=== PATIENT | female | born 1965 | race Two or more races ===

== ENCOUNTER → 2024-05-02 | Outpatient (BNVA) | payer MEDICAID, SELFPAY | END | disposition home or self-care (01) | PROVIDERS: PCP Nurse Practitioner Family; Referring Provider Nurse Practitioner Family; Visit Provider Nurse Practitioner Primary Care | DX: H61.22 Impacted cerumen, left ear (principal); H60.391 Other infective otitis externa, right ear; Z01.812 Encounter for preprocedural laboratory examination | CPT/HCPCS: 69209; 99214 ==

== ENCOUNTER → 2024-05-09 | Outpatient (BNVA) | payer MEDICAID, SELFPAY | END | disposition home or self-care (01) | PROVIDERS: PCP Nurse Practitioner Family; Referring Provider Nurse Practitioner Family; Visit Provider Nurse Practitioner Family | DX: E78.5 Hyperlipidemia, unspecified (principal); I10 Essential (primary) hypertension; R73.03 Prediabetes; H92.01 Otalgia, right ear; M25.50 Pain in unspecified joint; M81.0 Age-related osteoporosis without current pathological fracture; M85.88 Other specified disorders of bone density and structure, other site; M06.9 Rheumatoid arthritis, unspecified; Z12.4 Encounter for screening for malignant neoplasm of cervix; H60.501 Unspecified acute noninfective otitis externa, right ear | CPT/HCPCS: 99214 ==

== ENCOUNTER → 2024-05-16 | Outpatient (BNVA) | payer MEDICAID, SELFPAY | END | disposition home or self-care (01) | PROVIDERS: PCP Nurse Practitioner Family; Referring Provider Nurse Practitioner Family; Visit Provider Nurse Practitioner Family | DX: H60.501 Unspecified acute noninfective otitis externa, right ear (principal); Z71.2 Person consulting for explanation of examination or test findings | CPT/HCPCS: 99214 ==

== ENCOUNTER → 2024-06-18 | Outpatient (CLI) | payer MEDICAID, SELFPAY ==
--- NOTE | 2024-06-18 08:45 | XR_ITS ---
Examination: MRI brain without intravenous contrast. Date and time of exam: June 18, 2024 10:30 AM Indications: Headaches beginning 6 months ago with increasing memory loss Technique: Multiple axial and sagittal images of the brain obtained. Siemens high-resolution 1.5 Lisseth short bore scanners utilized. Sagittal sections, T1-weighted, TR 500, TE 14, are performed. Axial sections proton-density and T2-weighted have been obtained. Inversion recovery axial images, TR 9, 260, TE 111, TI 2500. Diffusion weighted images, axial sections, TR 4800, TE 128, B value 1000 Axial sections, ADC map, TR 4800, TE 128 Findings: Enlargement of the sella turcica is not present. The optic chiasm and infundibular are not remarkable. Prepontine and interpeduncular cisterns are not enlarged. There is no localized enlargement of the medulla or chris. Fourth ventricle and cerebellar tonsils appear normal in position. No subacute area of hemorrhage density is seen. Mass in the cerebellopontine angle region is not evident. Globes symmetrical. Orbital musculature including medial lateral rectus muscles do not exhibit abnormality. Diffusion-weighted images demonstrate no focus of restricted diffusion. Increased white matter signal single punctate focus increased signal right temporal white matter FLAIR image 14 Mass effect upon the ventricular system is not identified. Impression: Negative for acute hemorrhage mass effect or midline shift No acute infarct Single punctate focus increased signal right temporal white matter, differential would include demyelinating disease Bilateral mastoiditis
== END | disposition home or self-care (01) ==
PROVIDERS: PCP Nurse Practitioner Family; Referring Provider Nurse Practitioner Family; Visit Provider Nurse Practitioner Family
DX: R90.82 White matter disease, unspecified (principal); H70.93 Unspecified mastoiditis, bilateral
CPT/HCPCS: 70551

== ENCOUNTER → 2024-06-23 | Outpatient (BNVA) | payer MEDICAID, SELFPAY | END | disposition home or self-care (01) | PROVIDERS: PCP Nurse Practitioner Family; Referring Provider Nurse Practitioner Family; Visit Provider Nurse Practitioner Family | DX: G43.009 Migraine without aura, not intractable, without status migrainosus (principal); G37.9 Demyelinating disease of central nervous system, unspecified | CPT/HCPCS: 99212; G0463 ==

== ENCOUNTER → 2024-06-24 | Outpatient (CLI) | payer MEDICAID, SELFPAY ==
--- NOTE | 2024-06-24 09:45 | XR_ITS ---
Examination: Screening digital mammography, bilateral Computer aided detection 3-D breast Tomosynthesis, bilateral Date and time of exam: June 24, 2024 0950 hours Compared to mammograms dating to May 04, 2012 Indication: Screening Technique: Nonmagnified MLO, CC views of the breasts to been obtained, reconstructed from 3-D Tomosynthesis images. R2 computer aided detection program utilized for evaluation of suspicious masses and/or abnormal calcifications. 3-D Tomosynthesis images obtained. Findings: Scattered areas of fibroglandular density. Benign calcifications. No interval suspicious masses Impression: BI-RADS category II: Benign Findings. Recommend 1 year follow-up mammogram.
== END | disposition home or self-care (01) ==
LOC: CDIM 09:30
PROVIDERS: Referring Provider Nurse Practitioner Family; Visit Provider Nurse Practitioner Family
DX: Z12.31 Encounter for screening mammogram for malignant neoplasm of breast (principal); R92.323 Mammographic fibroglandular density, bilateral breasts; R92.1 Mammographic calcification found on diagnostic imaging of breast
CPT/HCPCS: 77063; 77067

== ENCOUNTER → 2024-06-24 | Outpatient (BNVA) | payer MEDICAID, SELFPAY | END | disposition home or self-care (01) | PROVIDERS: PCP Nurse Practitioner Family; Referring Provider Nurse Practitioner Family; Visit Provider Nurse Practitioner Family | DX: F33.1 Major depressive disorder, recurrent, moderate (principal); M25.541 Pain in joints of right hand; M25.531 Pain in right wrist; R20.2 Paresthesia of skin | CPT/HCPCS: 99214 ==

== ENCOUNTER → 2024-06-27 | Outpatient (CLI) | payer MEDICAID, SELFPAY ==
--- NOTE | 2024-06-27 13:19 | XR_ITS ---
Examination: Bilateral wrists 4 views Technique one AP lateral bilateral ribs 4 views Exam date and time: June 27, 2024 at 1339 hours INDICATIONS: Wrist pain months. FINDINGS: Moderate osteopenia Mild diffuse narrowing radiocarpal intercarpal and carpometacarpal joints No erosive arthritis No fractures IMPRESSION: Mild diffuse narrowing radiocarpal, intercarpal and carpometacarpal joints
--- NOTE | 2024-06-27 13:19 | XR_ITS ---
Examination: Bilateral hands, 4 views. Technique: AP,, Lateral each hand total 4 views Date and time of exam: June 27, 2024 1322 hours INDICATIONS: Hand pain months FINDINGS: Moderate osteopenia No fracture or dislocation involving either hand Minimal osteoarthritis distal interphalangeal joints second through fifth digits and interphalangeal joint first digits No erosive arthritis IMPRESSION: Mild osteoarthritis
== END | disposition home or self-care (01) ==
LOC: CDIM 12:53
PROVIDERS: PCP Nurse Practitioner Family; Referring Provider Nurse Practitioner Family; Visit Provider Nurse Practitioner Family
DX: M19.042 Primary osteoarthritis, left hand (principal); M19.041 Primary osteoarthritis, right hand; M25.832 Other specified joint disorders, left wrist; M25.831 Other specified joint disorders, right wrist
CPT/HCPCS: 73100; 73120

== ENCOUNTER → 2024-07-04 | Outpatient (BNVA) | payer MEDICAID, SELFPAY | END | disposition home or self-care (01) | PROVIDERS: PCP Nurse Practitioner Family; Referring Provider Nurse Practitioner Family; Visit Provider Nurse Practitioner Family | DX: Z71.2 Person consulting for explanation of examination or test findings (principal); R20.2 Paresthesia of skin; M79.642 Pain in left hand; M79.641 Pain in right hand; F32.1 Major depressive disorder, single episode, moderate | CPT/HCPCS: 99212; G0463 ==

== ENCOUNTER → 2024-07-15 | Outpatient (BNVA) | payer MEDICAID, SELFPAY | END | disposition home or self-care (01) | PROVIDERS: PCP Nurse Practitioner Family; Referring Provider Nurse Practitioner Family; Visit Provider Nurse Practitioner Family | DX: F32.1 Major depressive disorder, single episode, moderate (principal); F41.9 Anxiety disorder, unspecified | CPT/HCPCS: 99213 ==

== ENCOUNTER → 2024-08-15 | Outpatient (BNVA) | payer MEDICAID, SELFPAY | END | disposition home or self-care (01) | PROVIDERS: PCP Nurse Practitioner Primary Care; Referring Provider Nurse Practitioner Primary Care; Visit Provider Nurse Practitioner Primary Care | DX: Z78.0 Asymptomatic menopausal state (principal); R30.0 Dysuria | CPT/HCPCS: 81001; 99214 ==

== ENCOUNTER → 2024-08-19 | Outpatient (BNVA) | payer MEDICAID, SELFPAY | END | disposition home or self-care (01) | PROVIDERS: PCP Nurse Practitioner Family; Referring Provider Nurse Practitioner Family; Visit Provider Nurse Practitioner Family | DX: Z71.2 Person consulting for explanation of examination or test findings (principal); E78.5 Hyperlipidemia, unspecified | CPT/HCPCS: 99213 ==

== ENCOUNTER → 2024-09-13 | Outpatient (BNVA) | payer MEDICAID, SELFPAY | END | disposition home or self-care (01) | PROVIDERS: PCP Nurse Practitioner Family; Referring Provider Nurse Practitioner Family; Visit Provider Nurse Practitioner Family | DX: G43.009 Migraine without aura, not intractable, without status migrainosus (principal); E78.5 Hyperlipidemia, unspecified | CPT/HCPCS: 99212; G0463 ==

== ENCOUNTER → 2024-11-18 | Outpatient (BNVA) | payer MEDICAID, SELFPAY | END | disposition home or self-care (01) | PROVIDERS: PCP Nurse Practitioner Family; Referring Provider Nurse Practitioner Family; Visit Provider Nurse Practitioner Family | DX: E55.9 Vitamin D deficiency, unspecified (principal) ==

== ENCOUNTER → 2024-11-29 | Outpatient (BNVA) | payer MEDICAID, SELFPAY | END | disposition home or self-care (01) | PROVIDERS: PCP Nurse Practitioner Family; Referring Provider Nurse Practitioner Family; Visit Provider Nurse Practitioner Primary Care | DX: E78.5 Hyperlipidemia, unspecified (principal) | CPT/HCPCS: 99212; G0463 ==

== ENCOUNTER → 2024-12-02 | Outpatient (BNVA) | payer MEDICAID, SELFPAY | END | disposition home or self-care (01) | PROVIDERS: PCP Nurse Practitioner Family; Referring Provider Nurse Practitioner Family; Visit Provider Nurse Practitioner Family | DX: R00.2 Palpitations (principal); E78.5 Hyperlipidemia, unspecified; M85.80 Other specified disorders of bone density and structure, unspecified site; M81.0 Age-related osteoporosis without current pathological fracture | CPT/HCPCS: 93005; 99215 ==

== ENCOUNTER → 2024-12-09 | Outpatient (BNVA) | payer MEDICAID, SELFPAY | END | disposition home or self-care (01) | PROVIDERS: PCP Nurse Practitioner Family; Referring Provider Nurse Practitioner Family; Visit Provider Nurse Practitioner Family | DX: M81.0 Age-related osteoporosis without current pathological fracture (principal); M85.80 Other specified disorders of bone density and structure, unspecified site | CPT/HCPCS: 96372; 99213; J0897 ==

== ENCOUNTER → 2024-12-26 | Outpatient (BNVA) | payer MEDICAID, SELFPAY | END | disposition home or self-care (01) | PROVIDERS: PCP Nurse Practitioner Family; Referring Provider Nurse Practitioner Family; Visit Provider Nurse Practitioner Family | DX: R10.9 Unspecified abdominal pain (principal); R11.0 Nausea | CPT/HCPCS: 90471; 96372; 99213; 99215; J1885 ==

== ENCOUNTER → 2024-12-30 | Outpatient (CLI) | payer MEDICAID, SELFPAY ==
--- NOTE | 2024-12-30 13:30 | XR_ITS ---
Examination: Abdomen sonogram, complete Date and time of exam: December 30, 2024 1314 hours INDICATIONS: Right upper abdominal pain beginning 2 weeks ago, cholecystectomy history. Technique: Multiple real-time grayscale transabdominal sonographic images of the abdomen have been obtained. Findings: Absent gallbladder Normal common bile duct 0.4 cm Pancreatic head 2.4 cm Aorta not enlarged. Liver 13.3 cm no liver lesions Normal hepatopedal portal venous flow Patent IVC Right kidney 10.0 cm cortex 1.0 cm Left kidney 10.3 cm cortex 1.9 cm Mild scar formation bilaterally Spleen 9.6 cm IMPRESSION: Normal common bile duct Liver normal size no focal liver lesions
== END | disposition home or self-care (01) ==
PROVIDERS: Referring Provider Nurse Practitioner Family; Visit Provider Nurse Practitioner Family
DX: R10.9 Unspecified abdominal pain (principal)
CPT/HCPCS: 76700

== ENCOUNTER → 2025-01-02 | Outpatient (BNVA) | payer MEDICAID, SELFPAY | END | disposition home or self-care (01) | PROVIDERS: PCP Nurse Practitioner Family; Referring Provider Nurse Practitioner Family; Visit Provider Nurse Practitioner Family | DX: R10.9 Unspecified abdominal pain (principal); Z71.2 Person consulting for explanation of examination or test findings | CPT/HCPCS: 99212; G0463 ==

== ENCOUNTER → 2025-01-03 | Outpatient (BNVA) | payer MEDICAID, SELFPAY | END | disposition home or self-care (01) | PROVIDERS: PCP Nurse Practitioner Family; Referring Provider Nurse Practitioner Family; Visit Provider Nurse Practitioner Family | DX: R10.9 Unspecified abdominal pain (principal) | CPT/HCPCS: 99212; G0463 ==

== ENCOUNTER → 2025-01-13 | Outpatient (CLI) | payer MEDICAID, SELFPAY ==
--- NOTE | 2025-01-13 | XR_ITS ---
Examination: Bilateral wrists 6 views TECHNIQUE: AP oblique lateral each wrist total 6 views Date and time: January 13, 2025 1120 hours INDICATIONS: Bilateral wrist pain one year FINDINGS: Mild to moderate osteopenia. Mild diffuse narrowing radiocarpal intercarpal carpometacarpal joints No erosive arthritis No fractures No avascular necrosis IMPRESSION: Mild diffuse narrowing radiocarpal, intercarpal, carpometacarpal joints
--- NOTE | 2025-01-13 | XR_ITS ---
Examination: Bilateral hands, 6 views. Technique: AP, Oblique, Lateral each hand total 6 views Date and time of exam: January 14, 2000 2514 hours INDICATIONS: Bilateral hand and wrist pain beginning one year ago. FINDINGS: Mild juxta-articular bone demineralization. Bilateral mild diffuse narrowing joints of the wrists and hands. No erosive arthritis. No cortical bone destruction No foreign bodies IMPRESSION: Mild diffuse narrowing joints of the wrists and hands No erosive arthritis No fractures or avascular necrosis
== END | disposition home or self-care (01) ==
PROVIDERS: PCP Nurse Practitioner Family
DX: M25.842 Other specified joint disorders, left hand (principal); M25.841 Other specified joint disorders, right hand; M25.832 Other specified joint disorders, left wrist; M25.831 Other specified joint disorders, right wrist
CPT/HCPCS: 73110; 73130

== ENCOUNTER 2025-02-22 11:03 | Day surgery (SDC) | payer MEDICAID, SELFPAY ==
[2025-02-22] VITALS (13 sets, daily range): BP systolic 107–158; BP diastolic 78–96; PULSE 63–82; RESP 12–22; TEMP 36.7–37.3; O2SAT 98–100; BMI 27.3
[2025-02-22 11:42] LABS: Basophils # (Auto) 0.0 Thou/mm3 (0.0-0.2); Basophils % (Auto) 0 % (0-2.5); Eosinophils # (Auto) 0.0 Thou/mm3 (0.0-0.5); Eosinophils % (Auto) 0 % (0-10); Hematocrit 43.1 % (36.0-46.0); Hemoglobin 14.3 g/dL (12.0-16.0); Immature Granulocytes Auto 0.03 Thou/mm3 (0.00-0.00); Lymphocytes # (Auto) 1.8 Thou/mm3 (1.0-4.8); Lymphocytes % (Auto) 20 % (10-50); Mean Corpuscular HGB Conc 33.2 g/dl (31.0-37.0); Mean Corpuscular Hemoglobin 29.4 pg (25.0-35.0); Mean Corpuscular Volume 89 fL (80-100); Monocytes # (Auto) 0.5 Thou/mm3 (0.0-0.8); Monocytes % (Auto) 5 % (0-12); Neutrophils # (Auto) 6.6 Thou/mm3 (1.8-7.7); Neutrophils % (Auto) 74 % (37-80); Nucleated Red Blood Cell # 0.00 Thou/mm3 (0.00-0.00); Nucleated Red Blood Cell % 0 /100 WBC (0); Platelet Count 260 Thou/mm3 (140-440); RDW Standard Deviation 41.5 fL (36.4-46.3); Red Blood Count 4.87 Miln/mm3 (4.00-5.20); White Blood Count 8.9 Thou/mm3 (3.6-11.0)
[2025-02-22 11:51] LABS: Anion Gap 9 (7-16); BUN/Creatinine Ratio 15 Ratio (12-20); Blood Urea Nitrogen 9 mg/dL (9-23); Calcium 9.1 mg/dL (8.3-10.6); Carbon Dioxide 26.6 mMol/L (20.0-31.0); Chloride 107 mMol/L (98-107); Creatinine (Component) 0.6 mg/dL (0.6-1.3); Glucose 104 mg/dL (74-106); Osmolality,Calculated 283 (275-295); Potassium 4.1 mMol/L (3.4-5.1); Sodium 143 mMol/L (136-145); eGFR > 60 See Note
[2025-02-22 12:07] LABS: INR 1.0 (0.9-1.3); Partial Thromboplastin Time 26.9 Seconds (22.0-36.0); Prothrombin Time 10.8 Seconds (9.0-12.2)
--- NOTE | 2025-02-22 15:46 | PC.NURSE ---
1415 patient is awake ,alert, breathing unlabored, s/p lhc by dr sosa, TR band present to right wrist, no bleeding or hematoma noted, report received from [place] DOBSON, patient to stop aspirin. 1452 2ml air removed from TR band since hemostasis time 1352. 1535 patient is awake, alert, breathing unlabored, Tr band removed from right wrist, no bleeding or hematoma noted, site covered with tegaderm and coban, report given to Morgan DOBSON
--- NOTE | 2025-02-24 13:45 | ESOP_ITS ---
Cardiac Cath Procedure Procedure Name Date of procedure: 02/24/25 SOCIAL WORK ADMINISTRATOR: Layton Sawant MD PROCEDURE PERFORMED: 1. Left heart cardiac catheterization- Left and right coronary angiograms with LVEDP measurement and left ventriculogram 2. Ultrasound-guided access of the right radial artery 3. Conscious sedation for 30 minutes.. Procedure Narrative HISTORY AND INDICATIONS: Yisel Walter, a 59-year-old woman, with past medical history of RA, prediabetes, HLD, migraine headaches, moderate depression. Came to the office for evaluation of palpitations and chest pressure. Given symptoms and history patient was started on ischemic cardiac work up. Stress echo with treadmill (tracey protocol) showed EKG stress is positive for ST depressions in leads II and III, but was negative for ischemia by echo criteria with no regional wall motion abnormalities and good augmentation and contraction of all the LV segments. Patient was brought in for an elective cardiac catheterization. Patient was explained the risk benefits and alternatives of performing a left heart cardiac catheterization including the risk of bleeding, heart attack, stroke and in detail and the agreeable for the procedure. Consent signed, placed in the chart and H&P updated. DESCRIPTION OF PROCEDURE: The patient was brought to the cardiac catheterization lab and all asceptic precautions were followed. Patient was given 1 Mg of Versed and 50 mcg of fentanyl for moderate conscious sedation. 2 mL of lidocaine was given in the right wrist. The right radial artery was accessed via the ultrasound guidance as well as micropuncture technique. A 6 Azeri glide sheath was introduced. We then used a 5 Azeri TIG 4 catheter to perform the left and right coronary angiograms as well as a left ventriculogram which showed the following findings. 1. Left ventricular ejection fraction was normal at 60 to 65% without any regional wall motion abnormalities. LVEDP was normal at 12 mmHg. There was no significant transvalvular aortic gradient. 2. Right dominant circulation 3. Left main artery is a large-caliber vessel gives rise to LAD, LCX and without any significant disease. 4. LAD is a large sized artery with mild myocardial bridging in the mid segment of 10-15 mm, gives rise to a medium size diagonal and without show any significant disease. 5. LCx is a large sized artery, gives rise to a medium OM1 and small OM2 without any significant disease. 6. RCA is a large artery, gives rise to a medium RPDA and RPL without any significant disease. A radial band was used to achieve the hemostasis of the right radial artery access. Patient will be monitored in the cardiac loader helper sorting yard for the next 2 to 3 hours and will be discharged home / telemetry later today if hemodynamically stable. Complications: None Specimens: None Blood loss: Estimated 5-10 ml Summary/findings: 1. Abnormal Stress test: LHC showed mild myocardial bridging 10-15 mm of mid LAD. Rest of coronaries with only minimal luminal irregularities and no angiographically significant obstruction. 2. LVEF normal at 60-65% and LVEDP normal at 12 mmHg. No significant transvalvular aortic gradient. Recommendations: 1. Recommend aggressive medical treatment and aggressive risk factor modification. 2. Recommended no lifting more than 5 pounds for next 7-10 days and follow up in my office in 7 days. Layton Sawant MD Interventional Cardiology.
== END 2025-02-22 16:50 | disposition home or self-care (01) ==
PROVIDERS: PCP Nurse Practitioner Family; Referring Provider Internal Medicine Cardiovascular Disease; Visit Provider Internal Medicine Cardiovascular Disease
PROC: (CPT 93458; principal; 2025-02-22 12:30)
DX: R94.39 Abnormal result of other cardiovascular function study (principal); R07.9 Chest pain, unspecified; R00.2 Palpitations; I10 Essential (primary) hypertension; E78.2 Mixed hyperlipidemia; Z79.899 Other long term (current) drug therapy
CPT/HCPCS: 93458; 36415; 80048; 85025; 85610; 85730; 99152; A4649; C1769; C1887; C1894; J0168; J0461; J1643; J2250; J2312; J2371; J3010; J3490; Q9967; J2305

== ENCOUNTER 2025-02-27 09:28 | Emergency (ER) | payer MEDICAID, SELFPAY ==
[2025-02-27 10:00] VITALS: BP 162/98; PULSE 89; RESP 18; TEMP 36.6; O2SAT 99; BMI 26.3
--- NOTE | 2025-02-27 10:31 | XR_ITS ---
Examination: CT abdomen with intravenous contrast CT pelvis with intravenous contrast 2-D coronal reconstructions 2-D sagittal reconstructions Date and time of exam:February 27, 2025, 1226 hours, comparison May 14, 2014 INDICATIONS: Right-sided flank pain beginning 2 days ago. CTDI: vol (mGy) 7.61 DLP: (mGycm) 385 Technique: Multiple axial sections of the abdomen and pelvis have been obtained. 64 slice high-resolution scanner used. 3 mm axial sections have been obtained, post intravenous injection 60 cc Isovue-370 2-D sagittal, coronal reconstructions obtained. Low dose protocols were performed. One or more of the following dose reduction techniques were used; automated exposure control, adjustment of the mA and/or KV according to patient size, use of iterative reconstruction technique. Findings: No focal liver or splenic lesions Absent gallbladder Common hepatic duct 17 mm Aorta normal size No renal or ureteral calculi, no hydronephrosis Aorta normal size Normal appendix Small fat-containing umbilical hernia No bowel obstruction Contracted urinary bladder Moderate osteopenia IMPRESSION: Absent gallbladder Enlarged common hepatic duct, suggest hepatobiliary sonography follow-up No renal or ureteral calculi, no hydronephrosis Normal appendix
[2025-02-27] MEDS: MORPHINE SULF INJ 4 MG/ML VIAL IVP (10:48)
[2025-02-27] MEDS: ONDANSETRON INJ 2 MG/ML INJ 2 ML 4 MG IVP (10:49)
--- NOTE | 2025-02-27 10:52 | PD.EDABDPN ---
ED Abdominal Pain RME/HPI General Chief Complaint: Abdominal Pain Stated complaint: RUQ ABD PAIN Time seen by provider: 02/27/25 10:27 Arrival date/time: 02/27/25 09:28 RME / HPI RME / HPI narrative: 59 year old female with history of rheumatoid arthritis, diabetes, hyperlipidemia, presents to the ED for evaluation of abdominal pain occurring intermittently over the last 2-months. Pain described as throbbing and aching in sensation that is located most to the right upper quadrant with radiation around to her back, rating moderate-severe. States last night pain became severe that interrupted her sleep. Reportedly had been evaluated by her PCP when pain first began. States she has had labs, stool samples, and an abdominal ultrasound performed with no acute findings. Was prescribed Bentyl and Famotidine which she has taken with no change. State a CT abdomen and pelvis has been ordered by PCP and has been referred to see GI. Denies fevers, chills, chest pain, cough, vomiting, diarrhea, constipation, or urinary symptoms. Related Data Home Medications ?Medication ?Instructions ?Recorded ?Confirmed azelastine 137 mcg (0.1 %) nasal 1 spray intranasal BID 12/26/24 02/22/25 spray cholecalciferol (vitamin D3) 125 125 mcg PO QDAY 02/22/25 02/22/25 mcg (5,000 unit) tablet (Vitamin D3) omeprazole 20 mg capsule,delayed 20 mg PO DAILY 02/22/25 02/22/25 release Previous Rx's ?Medication ?Instructions ?Recorded ezetimibe 10 mg tablet 10 mg PO QDAY #90 tabs 09/13/24 galcanezumab-gnlm 120 mg/mL 120 mg subcut QMONTH #2 mL 09/13/24 subcutaneous pen injector (Emgality Pen) losartan 25 mg tablet See Rx Instructions .Route 12/08/24 .COMPLEX #90 tabs evolocumab 140 mg/mL subcutaneous See Rx Instructions .Route 02/10/25 pen injector (Repatha SureClick) .COMPLEX #2 mL Allergies Allergy/AdvReac Type Severity Reaction Status Date / Time No Known Allergies Allergy Verified 02/27/25 09:34 Review of Systems Review of Systems Systems Reviewed: All systems reviewed, normal except as documented Past Medical History Past Medical History CARDIAC: Positive Cardiac Arrhythmia (no senior teradata developer), Angina, Hypercholesterolemia and Hypertension GASTROINTESTINAL: Positive Gastrointestinal Disorders, Gall Bladder Disease (for this procedure), Hiatal Hernia, Hemorrhoids (no surgery) and Gastroesophageal Reflux Disease (takes omeprazole) REPRODUCTIVE: Positive Previous Pregnancies (x2) MUSCULOSKELETAL: Positive Musculoskeletal Disorders (JOINT PAIN) PSYCHO/SOCIAL: Positive Depression OTHER HISTORY: Positive Hospitalization (overnight for GI upset) and Falls Family History FAMILY HISTORY: Positive Family Cardiac Disorders, Family Cancer and Family Surgery Surgical History SURGICAL: Positive Ear Surgery, Abdominal Surgery and Hysterectomy Social History SMOKING STATUS: Never smoker SECOND HAND EXPOSURE: No SUBSTANCE USE: does not use ED Exam Narrative Physical exam: GENERAL APPEARANCE: alert and oriented x 4, well-developed, well-nourished HEENT: Normocephalic, atraumatic; pupils equal, round, reactive to light; EOMI; mucous membranes pink, moist; oropharynx clear NECK: Supple LUNGS: CTABL; no wheezes, no rales, no rhonchi HEART: Regular rate, regular rhythm; normal S1, S2; no murmurs ABDOMEN: mildly distended; normal BS; soft, mild right-sided abdominal tenderness, no guarding, no rebound; no masses, no organomegaly, no hernia BACK: no CVA tenderness EXTREMITIES: atraumatic; no edema NEUROLOGIC: awake; alert and oriented x4; cranial nerves II-XII grossly intact; no focal sensory or motor deficits PSYCHIATRIC: appropriate mood and affect SKIN: warm, dry, normal color; no rashes Course Course Course Narrative: 1450p: We reviewed all the results, analysis, and treatment plans. Patient is complaining of right abdominal pain and requesting pain medications. Will order Toradol and Beatrice before DC home. Patient mentioned she has an appointment scheduled with GI in [place] on 03/09/2025. Quality Measures none Orders Category Date Time Status CT Screening NOW Care 02/27/25 10:31 Completed Insert IV NOW Care 02/27/25 10:[address] abdomen pelvis w con Stat Exams 02/27/25 10:31 Completed CBC Stat Lab 02/27/25 10:50 Completed Comprehensive Metabolic Panel Stat Lab 02/27/25 10:50 Completed Lipase Stat Lab 02/27/25 10:50 Completed Magnesium Stat Lab 02/27/25 10:50 Completed Troponin I Stat Lab 02/27/25 10:50 Completed Urinalysis Stat Lab 02/27/25 10:39 Completed Urine Culture Stat Lab 02/27/25 10:39 Received HYDROcodone*/APAP 5/325 [Beatrice 5/325] Med 02/27/25 14:51 Discontinued 1 tab PO X1 ONE Ketorolac Inj [Toradol Inj] Med 02/27/25 14:51 Discontinued 15 mg IVP X1 ONE Lidocaine 2% Viscous [Xylocaine 2% Viscous] Med 02/27/25 13:53 Discontinued 15 ml PO X1 ONE Morphine* Inj Med 02/27/25 10:30 Discontinued 4 mg IVP X1 ONE Ondansetron Inj [Zofran Inj] Med 02/27/25 10:30 Discontinued 4 mg IVP X1 ONE mg Hyd/Al Hyd/Elba Susp [Maalox Susp] Med 02/27/25 13:53 Discontinued 30 ml PO X1 ONE Vital Signs Vital signs: Vital Signs Temperature 98 F 02/27/25 10:00 Pulse Rate 89 02/27/25 10:00 Respiratory Rate 18 02/27/25 10:00 Blood Pressure 162/98 H 02/27/25 10:00 Pulse Oximetry (%) 99 02/27/25 10:00 Oxygen Delivery Method Room Air 02/27/25 10:00 Pulse ox is 99% on room air which is adequate. Abdominal Pain MDM MDM Narrative MDM Narrative:: IHeidy am scribing for and in the presence of Dr. Goncalves. Patient data External records reviewed:: [facility] previous records Clinical information provided by:: patient Social determinants that could affect healthcare access:: none Patient has the following chronic illnesses:: rheumatoid arthritis, diabetes, hyperlipidemia, How is presenting disease/condition affected by chronic disease/condition?: exacerbated by Evaluation data The following diagnostics were reviewed and interpreted by me:: lab results and radiology exam(s) Lab and/or radiology exams considered but not ordered:: None Interpretation Summary: Ordering Physician: Elida Goncalves MD Date of Service: 02/27/25 Procedure(s): CT abdomen pelvis w con Accession Number(s): [id number] cc: Dario Valdez MD; Elida Goncalves MD; Concepcion Kaur ([facility])~ Examination: CT abdomen with intravenous contrast CT pelvis with intravenous contrast 2-D coronal reconstructions 2-D sagittal reconstructions Date and time of exam:February 27, 2025, 1226 hours, comparison May 14, 2014 INDICATIONS: Right-sided flank pain beginning 2 days ago. CTDI: vol (mGy) 7.61 DLP: (mGycm) 385 Technique: Multiple axial sections of the abdomen and pelvis have been obtained. 64 slice high-resolution scanner used. 3 mm axial sections have been obtained, post intravenous injection 60 cc Isovue-370 2-D sagittal, coronal reconstructions obtained. Low dose protocols were performed. One or more of the following dose reduction techniques were used; automated exposure control, adjustment of the mA and/or KV according to patient size, use of iterative reconstruction technique. Findings: No focal liver or splenic lesions Absent gallbladder Common hepatic duct 17 mm Aorta normal size No renal or ureteral calculi, no hydronephrosis Aorta normal size Normal appendix Small fat-containing umbilical hernia No bowel obstruction Contracted urinary bladder Moderate osteopenia IMPRESSION: Absent gallbladder Enlarged common hepatic duct, suggest hepatobiliary sonography follow-up No renal or ureteral calculi, no hydronephrosis Normal appendix Dictated By: Dario Valdez MD Signed By: <Electronically signed by Dario Valdez MD in [place]> 02/27/25 1308 Medications / Prescriptions Medications or Prescriptions considered but not ordered:: None Medication administrations:: Medication Administration History Discontinued Medications Hydrocodone Bitart/Acetaminophen (Hydrocodone/Apap 5/325 Tablet) 1 tab PO X1 ONE Stop: 02/27/25 14:52 Last Admin: 02/27/25 14:57 Dose: 1 tab Documented By: BY Al Hydrox/Mg Hydrox/Simethicone (Mg Hyd/Al Hyd/Elba (Maalox Reg) Susp 30 Ml Udc) 30 ml PO X1 ONE Stop: 02/27/25 13:54 Last Admin: 02/27/25 14:44 Dose: 30 ml Documented By: BY Ketorolac Tromethamine (Ketorolac Inj 30 Mg/Ml Vial) 15 mg IVP X1 ONE Stop: 02/27/25 14:52 Last Admin: 02/27/25 14:56 Dose: 15 mg Documented By: BY Lidocaine HCl (Lidocaine Viscous 2% 15 Ml Udc) 15 ml PO X1 ONE Stop: 02/27/25 13:54 Last Admin: 02/27/25 14:44 Dose: 15 ml Documented By: BY Morphine Sulfate (Morphine Sulf Inj 4 Mg/Ml Vial) 4 mg IVP X1 ONE Stop: 02/27/25 10:31 Last Admin: 02/27/25 10:48 Dose: 4 mg Documented By: BO Ondansetron HCl (Ondansetron Inj 2 Mg/Ml Inj 2 Ml) 4 mg IVP X1 ONE Stop: 02/27/25 10:31 Last Admin: 02/27/25 10:49 Dose: 4 mg Documented By: BO See above Consultations Consultation(s) initiated? (list below): No Diagnosis Differential diagnosis abdominal pain: abdominal pain, calculus of kidney, diverticulitis, gastroenteritis and pancreatitis Most likely diagnosis given after review of the tests above:: Abdominal pain Admission Indicated Admission indicated?: not indicated Admission Request Was there a request for admission?: No Disposition Plan Disposition Plan: Discharge Discharge Attestation Discharge Attestation: The patient and all family members were given an opportunity to ask questions and understood the discharge instructions. Discharge instructions specifically effects, indications for sooner follow up or return to the emergency department, and the expected course of current diagnosis. Patient condition: Stable Discharge Plan Plan Patient Disposition: HOME (Self Care) Prescriptions/Referrals Prescriptions/Med Rec: No Action azelastine 137 mcg (0.1 %) spray,non-aerosol 1 spray intranasal BID Rx Instructions: administer into each nostril ezetimibe 10 mg tablet 10 mg PO QDAY Qty: 90 0RF Emgality Pen 120 mg/mL pen injector 120 mg subcut QMONTH Qty: 2 4RF losartan 25 mg tablet See Rx Instructions .ROUTE .COMPLEX Qty: 90 0RF Dose Instruction: Take 1 tablet by mouth once daily Rx Instructions: Take 1 tablet by mouth once daily Repatha SureClick 140 mg/mL pen injector See Rx Instructions .ROUTE .COMPLEX Qty: 2 0RF Dose Instruction: INJECT 140MG SUBCUTANEOUSLY EVERY 2 WEEKS Rx Instructions: INJECT 140MG SUBCUTANEOUSLY EVERY 2 WEEKS omeprazole 20 mg capsule,delayed release(DR/EC) 20 mg PO DAILY Patient Comments: TAKE 1 CAPSULE BY MOUTH ONCE DAILY FOR 6 WEEKS cholecalciferol (vitamin D3) [Vitamin D3] 125 mcg (5,000 unit) tablet 125 mcg PO QDAY Referrals: Natasha [facility] LOAN DOCUMENTS CLOSER,Concepcion Whelan LOAN DOCUMENTS CLOSER [Primary Care Provider, Family Practice] - In 1 week Problem List Clinical Impression: Abdominal pain Patient/Caregiver Discharge Instructions Education Materials: ED Abdominal Pain Unkn Cause Fem Print Language: Telugu Stand Alone Forms: [employer] Info., Patient Portal Info Letter
[2025-02-27 10:56] LABS: Collection Type, Urine Clean Catch
[2025-02-27 11:05] LABS: Bilirubin,Urine Negative (Negative); Blood,Urine Negative (Negative); Clarity,Urine Clear (Clear/Hazy); Color,Urine Lt-Yellow (Lt Yel-Yel); Glucose, Urine Negative (Negative); Ketones,Urine Negative (Negative); Leukocyte Esterase,Urine Negative (Negative); Nitrite,Urine Negative (Negative); PH,Urine 7.5 (5.0-7.0); Protein,Urine Negative (Neg - Trace); RBC,Urine 3 /hpf (0-3); Specific Gravity,Urine 1.017 (1.001-1.035); Squamous Epithelial Cell,Urine < 1 /hpf (0-5); Urobilinogen,Urine Negative mg/dL (0.0-1.0); WBC,Urine 3 /hpf (0-5)
[2025-02-27 11:17] LABS: Basophils # (Auto) 0.0 Thou/mm3 (0.0-0.2); Basophils % (Auto) 1 % (0-2.5); Eosinophils # (Auto) 0.0 Thou/mm3 (0.0-0.5); Eosinophils % (Auto) 0 % (0-10); Hematocrit 46.3 % (36.0-46.0); Hemoglobin 15.4 g/dL (12.0-16.0); Immature Granulocytes Auto 0.02 Thou/mm3 (0.00-0.00); Lymphocytes # (Auto) 1.6 Thou/mm3 (1.0-4.8); Lymphocytes % (Auto) 18 % (10-50); Mean Corpuscular HGB Conc 33.3 g/dl (31.0-37.0); Mean Corpuscular Hemoglobin 29.7 pg (25.0-35.0); Mean Corpuscular Volume 89 fL (80-100); Monocytes # (Auto) 0.4 Thou/mm3 (0.0-0.8); Monocytes % (Auto) 5 % (0-12); Neutrophils # (Auto) 6.7 Thou/mm3 (1.8-7.7); Neutrophils % (Auto) 76 % (37-80); Nucleated Red Blood Cell # 0.00 Thou/mm3 (0.00-0.00); Nucleated Red Blood Cell % 0 /100 WBC (0); Platelet Count 291 Thou/mm3 (140-440); RDW Standard Deviation 42.1 fL (36.4-46.3); Red Blood Count 5.18 Miln/mm3 (4.00-5.20); White Blood Count 8.8 Thou/mm3 (3.6-11.0)
[2025-02-27 11:31] LABS: Alanine Aminotransferase 16 U/L (10-49); Albumin, Serum 5.0 gm/dL (3.5-5.0); Albumin/Globulin Ratio 1.7 (1.2-2.2); Alkaline Phosphatase 72 U/L (46-116); Anion Gap 11 (7-16); Aspartate Amino Transferase 22 U/L (0-34); BUN/Creatinine Ratio 13 Ratio (12-20); Bilirubin,Total 0.7 mg/dL (0.3-1.2); Blood Urea Nitrogen 9 mg/dL (9-23); Calcium 9.5 mg/dL (8.3-10.6); Calcium (Corrected) 9.5 mg/dL (8.5-10.1); Carbon Dioxide 27.8 mMol/L (20.0-31.0); Chloride 103 mMol/L (98-107); Creatinine (Component) 0.7 mg/dL (0.6-1.3); Estimated Creatinine Clearance 78.7 mL/min (>60); Globulin 3.0 gm/dL (2.3-3.5); Glucose 96 mg/dL (74-106); Lipase 42 U/L (12-53); Magnesium 2.2 mg/dL (1.6-2.6); Osmolality,Calculated 281 (275-295); Potassium 3.5 mMol/L (3.4-5.1); Sodium 142 mMol/L (136-145); Total Protein 8.0 gm/dL (5.7-8.2); Troponin I < 0.002 ng/mL (0.0-0.045); eGFR > 60 See Note
[2025-02-27 14:13] VITALS: BP 132/84; PULSE 80; RESP 16; TEMP 36.8; O2SAT 98
[2025-02-27] MEDS: MG HYD/AL HYD/SIME (Maalox Reg) SUSP 30 ML UDC PO (14:44)
[2025-02-27] MEDS: LIDOCAINE VISCOUS 2% 15 ML UDC PO (14:44)
[2025-02-27 14:46] VITALS: BP 155/88; PULSE 87; RESP 18; O2SAT 89
[2025-02-27] MEDS: KETOROLAC INJ 30 MG/ML VIAL 15 MG IVP (14:56)
[2025-02-27] MEDS: HYDROcodone/APAP 5/325 TABLET 1 TAB PO (14:57)
== END 2025-02-27 15:03 | disposition home or self-care (01) ==
PROVIDERS: Emergency Provider Emergency Medicine; PCP Nurse Practitioner Family
DX: K83.8 Other specified diseases of biliary tract (principal)
CPT/HCPCS: 36415; 74177; 80053; 81001; 83690; 83735; 84484; 85025; 87086; 96374; 96375; 99284; A4649; J1885; J2270; J2405; J3490; Q9967; A9270

== ENCOUNTER → 2025-02-28 | Outpatient (BNVA) | payer MEDICAID, SELFPAY | END | disposition home or self-care (01) | PROVIDERS: PCP Nurse Practitioner Family; Referring Provider Nurse Practitioner Family; Visit Provider Nurse Practitioner Family | DX: Z09 Encounter for follow-up examination after completed treatment for conditions other than malignant neoplasm (principal); K21.9 Gastro-esophageal reflux disease without esophagitis; Z71.2 Person consulting for explanation of examination or test findings; R10.9 Unspecified abdominal pain; K83.8 Other specified diseases of biliary tract; K42.9 Umbilical hernia without obstruction or gangrene | CPT/HCPCS: 99214 ==

== ENCOUNTER 2025-04-14 13:30 | Outpatient (RCR) | payer MEDICAID, SELFPAY ==
--- NOTE | 2025-03-27 13:48 | PTNOTE_ITS ---
PT OP Initial Eval Patient Information Outpatient Physical Therapy Treatment Date: 03/27/25 Visit Reasons: BILATERAL CARPAL TUNNEL Medical Diagnosis: Left Carpal Tunnel Syndrome; Right Carpal Tunnel Syndrome Treatment Dx #1: Bilateral Hand Pain Treatment Dx #2: Bilateral Hand Weakness Start of Care: 03/27/25 Date of Onset: 1 year ago Smoking Status Smoking Status: Never smoker Initial Assessment Subjective: Pt is a 59 y/o female reports of chronic hand pain (8/10) with weakness and numbness. Pt was diagnosed with severe carpal tunnel syndrome. Pt has tried the shots and splints which helps a little. Pt has limitation with gripping, lifting, chores, self care, cooking, cleaning, and performing recreational activities. Objective: Bilateral Wrist AROM: all motions are WNL Bilateral Wrist MMTs: grossly 3/5 Special Test (+) phalen's (+) reverse phalen's Advertising Account Manager Strength L: 45 lbs R: 37 lbs Assessment: Pt demonstrate hand pain with weakness consistent with carpal tunnel syndrome leading to difficulty with ADLs. Pt will attempt physical therapy if pain pe rsist Pt will be refer back to provider for further consultation. Short Term and Cnc Operator Programmer Goals 1) Increase bilateral wrist MMTs grossly 4-/5 in 6 wks to be able to perform chores 2) Decrease hand pain to 2/10 in 6 wks to be able to perform recreational activities 3) Increase hand strength to 55 lbs in 6 wks to be able to perform gripping acti vities 4) Indep with HEP Treatment Plan 1) Manual Therapy 2) Therapeutic Activities 3) Therapeutic Exercises 4) Modalities (ice, heat) Frequency and Duration: 2 x wk for 6 wks Certification Dates: 03/27/25 to 06/27/25 Procedure Charges OP PT Eval Mod Complex 30 minutes: Yes
--- NOTE | 2025-03-31 15:30 | PT.ODAYNRPT ---
PT Outpatient Daily Note OP Daily Note Outpatient Physical Therapy Treatment Date: 03/31/25 Visit Reasons: BILATERAL CARPAL TUNNEL Subjective: Pt's hand feels worse. Pt mentioned there's more numbness lately. Objective: Please see flow chart for list of ther ex performed Assessment: minimal changes in symptoms posy PT session Plan: Continue with PT Length of Time (minutes) of Treatment: 30 Minutes Procedure Charges Therapeutic Exercise 30 minutes: Yes
--- NOTE | 2025-04-14 14:04 | PT.ODAYNRPT ---
PT Outpatient Daily Note OP Daily Note Outpatient Physical Therapy Treatment Date: 04/14/25 Visit Reasons: BILATERAL CARPAL TUNNEL Subjective: Pt reports her symptoms are worse, notices that her hands get red or swollen. Objective: Please see flow sheet for ther ex list. Assessment: Regressed interventions to accommodate reported pain and aggravated hand symptoms. Plan: Continue with POC. Length of Time (minutes) of Treatment: 30 Minutes Procedure Charges Therapeutic Exercise 30 minutes: Yes
== END 2025-04-23 23:59 | disposition home or self-care (01) ==
LOC: CPTX 13:30
DX: G56.03 Carpal tunnel syndrome, bilateral upper limbs (principal); M79.642 Pain in left hand; M79.641 Pain in right hand; G89.29 Other chronic pain
CPT/HCPCS: 97110; 97162

== ENCOUNTER → 2025-04-24 | Outpatient (BNVA) | payer MEDICAID, SELFPAY | END | disposition home or self-care (01) | PROVIDERS: PCP Nurse Practitioner Family; Referring Provider Nurse Practitioner Family; Visit Provider Nurse Practitioner Family | DX: Z00.01 Encounter for general adult medical examination with abnormal findings (principal); E78.5 Hyperlipidemia, unspecified; Z12.31 Encounter for screening mammogram for malignant neoplasm of breast; R10.9 Unspecified abdominal pain; K21.9 Gastro-esophageal reflux disease without esophagitis; R73.03 Prediabetes; N95.1 Menopausal and female climacteric states; R51.9 Headache, unspecified; H92.01 Otalgia, right ear; R42 Dizziness and giddiness; E66.3 Overweight; Z90.710 Acquired absence of both cervix and uterus | CPT/HCPCS: 93005; 99173; 99215 ==

== ENCOUNTER → 2025-05-01 | Outpatient (BNVA) | payer MEDICAID, SELFPAY | END | disposition home or self-care (01) | PROVIDERS: PCP Nurse Practitioner Primary Care; Referring Provider Nurse Practitioner Primary Care; Visit Provider Nurse Practitioner Primary Care | DX: E78.5 Hyperlipidemia, unspecified (principal); Z71.2 Person consulting for explanation of examination or test findings | CPT/HCPCS: 99212; G0463 ==

== ENCOUNTER 2025-05-05 10:00 | Outpatient (RCR) | payer MEDICAID, SELFPAY ==
--- NOTE | 2025-04-24 11:24 | PT.ODAYNRPT ---
PT Outpatient Daily Note OP Daily Note Outpatient Physical Therapy Treatment Date: 04/24/25 Visit Reasons: Bilateral carpal tunnel Subjective: Pt recently seen hand specialist and recommend more shots in the hands. Pt hands continue to worsening and is unsure of what to do moving forward. No change in weakness or numbness lately. Objective: Please see flow chart for list of ther ex performed Assessment: back off with 1# weight with wrist flexion and extension due to reported pain. Pt encourage to complete other hand exercises to maintain strength Plan: Continue with PT Length of Time (minutes) of Treatment: 30 Minutes Procedure Charges Therapeutic Exercise 30 minutes: Yes
--- NOTE | 2025-04-28 13:17 | PT.ODAYNRPT ---
PT Outpatient Daily Note OP Daily Note Outpatient Physical Therapy Treatment Date: 04/28/25 Visit Reasons: Bilateral carpal tunnel Subjective: Pt received cortisone shot in the left finger, however, still wants to attempt physical therapy. Pt's hands feel about the same. Objective: Please see flow chart for list of ther ex performed Assessment: modified all exercises to directly the right hand only due to left cortisone shot prior to PT session where finger is still hypersensitive Plan: Continue with PT Length of Time (minutes) of Treatment: 30 Minutes Procedure Charges Therapeutic Exercise 30 minutes: Yes
--- NOTE | 2025-05-05 11:37 | PTNOTE_ITS ---
PT OP Progress/Discharge Note Date of Service: 05/05/25 Progress Note/DC Note Progress Note/Discharge Note: DC Note Patient Information Visit Reasons: Bilateral carpal tunnel Medical Diagnosis: Left Carpal Tunnel Syndrome; Right Carpal Tunnel Syndrome Treatment Dx #1: Bilateral Hand Pain Treatment Dx #2: Bilateral Hand Weakness Service Continue Service or Discharge: Discharge Discharge Date: 05/05/25 Status Subjective: Pt's hands feels about the same and continue to have numbness or tingling. Due to continue symptoms Pt has limitation with gripping, lifting, chores, self care, cooking, and performing recreational activities Objective: Bilateral Wrist AROM: all motions are WNL Bilateral Wrist MMTs: grossly 3/5 Special Test (+) phalen's (+) reverse phalen's [employer] Strength L: 33 lbs R: 42 lbs Assessment: Pt demonstrate functional hand mobility and ROM, however, no significant change in strength leading to difficulty with ADLs. Pt will no longer benefit from physical therapy due to minimal progress towards PT goals. Pt was instructed on HEP last session and educated to continue exercises to maintain overall mobility. Pt perfomed all exercises safely, thank you for your referrals. Plan: D/C home with HEP and follow up with MD EDWARDS Procedure Charges Therapeutic Exercise 30 minutes: Yes
== END 2025-05-24 23:59 | disposition home or self-care (01) ==
LOC: CPTX 10:00
PROVIDERS: PCP Nurse Practitioner Family
DX: M79.642 Pain in left hand (principal); M79.641 Pain in right hand; R53.1 Weakness; R20.0 Anesthesia of skin; G89.29 Other chronic pain; G56.03 Carpal tunnel syndrome, bilateral upper limbs
CPT/HCPCS: 97110